=== PATIENT | male | born 1980 | race Two or more races ===

== ENCOUNTER 2023-03-19 19:59 | Inpatient (IN) | payer MEDICAID, OTHER ==
[~2023-03-19] VITALS: Ht 180.3 cm; Wt 73.9 kg
[2023-03-19] MEDS ORDERED: HALOPERIDOL 5 MG TABLET PO ONE (22:45)
[2023-03-19] MEDS ORDERED: IBUPROFEN 600 MG TABLET PO ONE (22:45)
[2023-03-19 22:57] LABS: BASOPHILS % (AUTO) 0.9 % (0.0-2.0); EOSINOPHILS % (AUTO) 8.4 % (1.0-6.0); HEMATOCRIT 39.3 % (41-53); HEMOGLOBIN 12.3 g/dL (13.5-17.5); LYMPHOCYTES # (AUTO) 1.9 K/uL (1.0-4.8); LYMPHOCYTES % (AUTO) 25.9 % (22.0-44.0); MEAN CORPUSCULAR HGB CONC 31.4 G/dL (31.0-37.0); MEAN CORPUSCULAR VOLUME 80 fL (80-100); MONOCYTES # (AUTO) 0.7 K/uL (0.1-1.0); MONOCYTES % (AUTO) 9.9 % (2.0-9.0); NEUTROPHILS % (AUTO) 54.9 % (40.0-70.0); PLATELET COUNT (AUTO) 258 K/uL (150-450); RED BLOOD CELL COUNT(AUTO) 4.94 MIL/uL (4.50-5.90); RED CELL DISTRIBUTION WIDTH 18.1 % (11.5-14.5)
[2023-03-19 23:03] LABS: ANION GAP 9 mmol/L (8-16); CALCIUM, TOTAL 9.2 mg/dL (8.8-10.5); CARBON DIOXIDE 28 mmol/L (22-29); CHLORIDE 104 mmol/L (98-107); CREATININE 0.74 mg/dL (0.60-1.30); GLOMERULAR FILTR. RATE CALC > 60 mL/min (>60); GLUCOSE,RANDOM 87 mg/dL (70-110); POTASSIUM 4.5 mmol/L (3.5-5.1); SODIUM SERUM 141 mmol/L (136-145)
[2023-03-19 23:09] LABS: ALANINE AMINOTRANSFERASE 28 U/L (12-78); ALBUMIN 3.5 g/dL (3.4-5.0); ALKALINE PHOSPHATASE 133 U/L (46-116); ASPARTATE AMINOTRANSFERASE 34 U/L (15-37); BILIRUBIN,TOTAL 0.1 mg/dL (0.1-1.0); TOTAL PROTEIN, SERUM 7.2 g/dL (6.4-8.2)
[2023-03-20] MEDS ORDERED: ZOLPIDEM TARTRATE 10 MG TABLET PO PRN (00:15)
[2023-03-20] MEDS ORDERED: HALOPERIDOL 5 MG TABLET PO PRN (00:15)
[2023-03-20 00:16] LABS: COVID AG,FIA SOURCE NASOPHARYNGEAL
[2023-03-20 05:51] VITALS: TEMP 97.4
[2023-03-20 06:03] VITALS: BP 125/80; PULSE 80; RESP 18; TEMP 97.4; O2SAT 99
[2023-03-20] MEDS ORDERED: PETROLATUM,WHITE 28 GM JELLY TP PRN (07:15)
[2023-03-20] MEDS ORDERED: ONDANSETRON HCL 4 MG TABLET PO PRN (07:15)
[2023-03-20] MEDS ORDERED: IBUPROFEN 400 MG TABLET PO PRN (07:15)
[2023-03-20] MEDS ORDERED: MAGNESIUM HYDROXIDE SUSPENSION 30 ML UDCUP PO PRN (07:15)
[2023-03-20] MEDS ORDERED: GuaiFENesin/D-METHORPHAN [SUGAR-FREE] 200-20MG/10 ML SYRUP UDCUP PO PRN (07:15)
[2023-03-20] MEDS ORDERED: ALBUTEROL SULFATE HFA 90 MCG/PUFF 8 GM INHALER IH PRN (07:15)
[2023-03-20] MEDS ORDERED: DOCUSATE SODIUM 100 MG CAPSULE PO PRN (07:15)
[2023-03-20] MEDS ORDERED: ACETAMINOPHEN 325 MG TABLET PO PRN (07:15)
[2023-03-20] MEDS ORDERED: LOPERAMIDE HCL 2 MG CAPSULE PO PRN (07:15)
[2023-03-20] MEDS ORDERED: NICOTINE 14 MG/24 HOUR PATCH TD PRN (07:15)
[2023-03-20] MEDS ORDERED: MAG HYDROX/AL HYDROX/SIMETH ES 30 ML SUSPENSION UDCUP PO PRN (07:15)
[2023-03-20] MEDS ORDERED: CloNIDine HCL 0.1 MG TABLET PO PRN (07:15)
[2023-03-20 15:15] VITALS: BP 132/85; PULSE 80; RESP 18; TEMP 97.9; O2SAT 99
[2023-03-20 18:28] VITALS: BP 125/80
[2023-03-20] MEDS: LORazepam 1 MG TABLET PO PRN (18:29)
[2023-03-20 20:35] VITALS: BP 138/76; PULSE 94; RESP 18; TEMP 97.8; O2SAT 99
[2023-03-21 08:08] VITALS: BP 109/63; PULSE 64; RESP 16; TEMP 97.5
[2023-03-21] MEDS: BusPIRone HCL 10 MG TABLET PO SCH ×2 (09:18→20:25)
[2023-03-21] MEDS: QUEtiapine FUMARATE 200 MG TABLET PO SCH ×2 (09:18→20:25)
[2023-03-21 20:17] VITALS: BP 110/58; PULSE 78; RESP 17; TEMP 98.4; O2SAT 98
[2023-03-22] MEDS: QUEtiapine FUMARATE 200 MG TABLET PO SCH ×2 (08:03→20:33)
[2023-03-22] MEDS: BusPIRone HCL 10 MG TABLET PO SCH ×2 (08:03→20:33)
[2023-03-22 08:07] VITALS: BP 103/58; PULSE 68; RESP 18; TEMP 98; O2SAT 96
[2023-03-22] MEDS: LORazepam 1 MG TABLET PO PRN (19:34)
[2023-03-22 20:03] VITALS: BP 108/56; PULSE 76; RESP 19; TEMP 98; O2SAT 99
[2023-03-23] MEDS: QUEtiapine FUMARATE 200 MG TABLET PO SCH ×2 (08:01→20:27)
[2023-03-23] MEDS: BusPIRone HCL 10 MG TABLET PO SCH ×2 (08:01→20:27)
[2023-03-23 08:18] VITALS: BP 107/66; PULSE 66; RESP 16; TEMP 97.6
[2023-03-23] MEDS: LORazepam 1 MG TABLET PO PRN (15:54)
[2023-03-23 20:07] VITALS: BP 116/72; PULSE 73; RESP 18; TEMP 98; O2SAT 98
[2023-03-24] MEDS: QUEtiapine FUMARATE 200 MG TABLET PO SCH (08:25)
[2023-03-24] MEDS: BusPIRone HCL 10 MG TABLET PO SCH (08:25)
[2023-03-24 08:36] VITALS: BP 100/62; PULSE 64; RESP 16; TEMP 97.6
[2023-03-24] MEDS ORDERED: BUSP10TA23 PO (10:49)
[2023-03-24] MEDS ORDERED: QUET200T30 PO (10:49)
== END 2023-03-24 13:45 | disposition home or self-care (01) | DRG 750 ==
LOC: EMS 20:01 → B2S 03-20 02:06
PROVIDERS: ADMIT Psychiatry & Neurology Psychiatry; ATTEND Psychiatry & Neurology Psychiatry
DX: F25.1 Schizoaffective disorder, depressive type (principal); R45.851 Suicidal ideations; Z20.822 Contact with and (suspected) exposure to COVID-19; D64.9 Anemia, unspecified; R51.9 Headache, unspecified; F41.9 Anxiety disorder, unspecified; F32.A Depression, unspecified; F17.210 Nicotine dependence, cigarettes, uncomplicated; G47.00 Insomnia, unspecified; Z79.899 Other long term (current) drug therapy
CPT/HCPCS: 80053; 85025; G0480

== ENCOUNTER 2023-03-20 05:40 | Emergency (ER) | payer MEDICAID, OTHER ==
[~2023-03-20] VITALS: Ht 172.7 cm; Wt 61.0 kg
[2023-03-20 09:05] LABS: BASOPHILS % (AUTO) 0.7 % (0.0-2.0); EOSINOPHILS % (AUTO) 6.4 % (1.0-6.0); HEMATOCRIT 39.2 % (41-53); HEMOGLOBIN 12.2 g/dL (13.5-17.5); LYMPHOCYTES # (AUTO) 1.2 K/uL (1.0-4.8); MEAN CORPUSCULAR HEMOGLOBIN 24.8 pg (26.0-34.0); MEAN CORPUSCULAR VOLUME 80 fL (80-100); MONOCYTES # (AUTO) 0.6 K/uL (0.1-1.0); MONOCYTES % (AUTO) 9.4 % (2.0-9.0); NEUTROPHILS # (AUTO) 4.1 K/uL (1.8-7.7); NEUTROPHILS % (AUTO) 64.5 % (40.0-70.0); PLATELET COUNT (AUTO) 264 K/uL (150-450); RED BLOOD CELL COUNT(AUTO) 4.91 MIL/uL (4.50-5.90); RED CELL DISTRIBUTION WIDTH 18.5 % (11.5-14.5)
[2023-03-20 10:05] LABS: ANION GAP 9 mmol/L (8-16); CALCIUM, TOTAL 9.2 mg/dL (8.8-10.5); CARBON DIOXIDE 27 mmol/L (22-29); CHLORIDE 105 mmol/L (98-107); CREATININE 0.85 mg/dL (0.60-1.30); GLOMERULAR FILTR. RATE CALC > 60 mL/min (>60); GLUCOSE,RANDOM 79 mg/dL (70-110); POTASSIUM 4.4 mmol/L (3.5-5.1); SODIUM SERUM 141 mmol/L (136-145)
[2023-03-20 10:10] LABS: ALANINE AMINOTRANSFERASE 27 U/L (12-78); ALBUMIN 3.5 g/dL (3.4-5.0); ALKALINE PHOSPHATASE 131 U/L (46-116); ASPARTATE AMINOTRANSFERASE 30 U/L (15-37); BILIRUBIN,TOTAL 0.1 mg/dL (0.1-1.0)
[2023-03-20 11:52] VITALS: BP 132/78; PULSE 66; RESP 18; TEMP 97.9
== END 2023-03-20 15:24 ==
LOC: EMS 05:42
DX: G25.9 Extrapyramidal and movement disorder, unspecified (principal); F25.9 Schizoaffective disorder, unspecified; F31.9 Bipolar disorder, unspecified; F17.210 Nicotine dependence, cigarettes, uncomplicated
CPT/HCPCS: 99285; 80053; 85025; G0480